=== PATIENT | female | born 1980 | race Caucasian/White ===

== ENCOUNTER 2016-08-24 03:07 | Inpatient (IN) | payer MEDICAID ==
[~2016-08-24] VITALS: Ht 167.6 cm; Wt 99.5 kg
[~2016-08-24 03:07] MED LIST: VICOT PO
[2016-08-24] MEDS ORDERED: IRON18TA PO (03:21)
[2016-08-24] MEDS ORDERED: PNV11TAB PO (03:21)
[2016-08-24 03:48] LABS: BASOPHILS % (AUTO) 0.2 % (0.0-2.0); EOSINOPHILS % (AUTO) 0.2 % (1.0-6.0); HEMATOCRIT 31.3 % (36-46); HEMOGLOBIN 10.4 g/dL (12.0-16.0); LYMPHOCYTES # (AUTO) 1.6 K/uL (1.0-4.8); LYMPHOCYTES % (AUTO) 15.1 % (22.0-44.0); MEAN CORPUSCULAR HEMOGLOBIN 26.4 pg (26.0-34.0); MEAN CORPUSCULAR HGB CONC 33.1 G/dL (31.0-37.0); MEAN CORPUSCULAR VOLUME 80 fL (80-100); MONOCYTES # (AUTO) 0.6 K/uL (0.1-1.0); MONOCYTES % (AUTO) 5.9 % (2.0-9.0); NEUTROPHILS # (AUTO) 8.1 K/uL (1.8-7.7); NEUTROPHILS % (AUTO) 78.6 % (40.0-70.0); PLATELET COUNT (AUTO) 283 K/uL (150-450); RED BLOOD CELL COUNT(AUTO) 3.92 MIL/uL (4.00-5.20); WHITE BLOOD COUNT (AUTO) 10.3 K/uL (4.5-11.0)
[2016-08-24 03:59] LABS: ANION GAP 11 mmol/L (8-16); CALCIUM, TOTAL 8.3 mg/dL (8.8-10.5); CARBON DIOXIDE 23 mmol/L (22-29); CHLORIDE 104 mmol/L (98-107); CREATININE 0.47 mg/dL (0.60-1.30); GLOMERULAR FILTR. RATE CALC > 60 mL/min (>60); POTASSIUM 3.5 mmol/L (3.5-5.1); SODIUM SERUM 138 mmol/L (136-145); UREA NITROGEN, BLOOD 10 mg/dL (7-18)
[2016-08-24] MEDS ORDERED: SODIUM CHLORIDE 0.9% 1,000 ML IV ONE (04:00)
[2016-08-24] MEDS ORDERED: ACTIVATED CHARCOAL 50 GM/240 ML SUSPENSION PO ONE (04:00)
[2016-08-24 04:09] LABS: SALICYLATE < 2.8 mg/dL (2.8-20.0)
[2016-08-24 04:23] LABS: ALANINE AMINOTRANSFERASE 15 U/L (12-78); ALBUMIN 2.9 g/dL (3.4-5.0); ASPARTATE AMINOTRANSFERASE 15 U/L (15-37); BILIRUBIN,TOTAL 0.3 mg/dL (0.1-1.0); TOTAL PROTEIN, SERUM 6.5 g/dL (6.4-8.2)
[2016-08-24 04:27] LABS: ACETAMINOPHEN < 2 mcg/mL (10-30)
[2016-08-24] MEDS ORDERED: 0.9% SODIUM CHLORIDE 10 ML SYRINGE IVP PRN ×2 (05:00→10:00)
[2016-08-24] MEDS ORDERED: ACETAMINOPHEN 325 MG TABLET PO PRN ×2 (05:00→10:00)
[2016-08-24] MEDS ORDERED: ONDANSETRON HCL 4 MG/2 ML VIAL IVP PRN ×2 (05:00→10:00)
[2016-08-24] MEDS ORDERED: PANTOPRAZOLE SODIUM 40 MG/VIAL IVP SCH (10:00)
[2016-08-24] MEDS ORDERED: DOCUSATE SODIUM 100 MG CAPSULE PO SCH (10:00)
[2016-08-24] MEDS ORDERED: MAGNESIUM HYDROXIDE SUSPENSION 30 ML UDCUP PO PRN (10:00)
[2016-08-24] MEDS ORDERED: OxyCODONE HCL/ACETAMINOPHEN 5-325 MG TABLET PO PRN ×2 (10:00)
[2016-08-24] MEDS ORDERED: FERS325 PO (11:13)
[2016-08-24] MEDS: SODIUM CHLORIDE 0.9% 1,000 ML IV SCH ×2 (11:52→20:00)
[2016-08-24 17:03] VITALS: BP 112/67
[2016-08-24 19:24] VITALS: BP 116/61
[2016-08-24 23:29] VITALS: BP 107/59
[2016-08-25 04:19] VITALS: BP 115/67
[2016-08-25] MEDS: SODIUM CHLORIDE 0.9% 1,000 ML IV SCH ×3 (06:00→17:03)
[2016-08-25 07:19] VITALS: BP 116/70
[2016-08-25] MEDS: PRENATAL VIT#96/FERROUS FUM/FA TABLET PO SCH (08:08)
[2016-08-25 11:00] VITALS: BP 117/68
[2016-08-25] MEDS: DOCUSATE SODIUM 100 MG CAPSULE PO SCH ×2 (12:45→19:50)
[2016-08-25 13:36] LABS: APPEARANCE,URINE CLEAR (CLEAR); GLUCOSE, URINE (UA) NEGATIVE (NEGATIVE); KETONES,URINE 15 mg/dL (NEGATIVE); LEUKOCYTE ESTERASE ,URINE SMALL (NEGATIVE); OCCULT BLOOD,URINE MODERATE (NEGATIVE); PROTEIN,URINE NEGATIVE (NEGATIVE)
[2016-08-25 13:46] LABS: SQUAMOUS EPITHELIAL CELL,UR Few /LPF (None Seen)
[2016-08-25 16:00] VITALS: BP 112/60
[2016-08-25] MEDS: FERROUS SULFATE 325 MG EC TABLET PO SCH (18:25)
[2016-08-25 20:23] VITALS: BP 116/62
[2016-08-26 00:26] VITALS: BP 118/69
[2016-08-26] MEDS: SODIUM CHLORIDE 0.9% 1,000 ML IV SCH ×2 (03:05→12:49)
[2016-08-26 04:39] VITALS: BP 103/68
[2016-08-26 08:01] VITALS: BP 108/57
[2016-08-26] MEDS: DOCUSATE SODIUM 100 MG CAPSULE PO SCH (08:14)
[2016-08-26] MEDS: FERROUS SULFATE 325 MG EC TABLET PO SCH ×3 (08:14→17:27)
[2016-08-26] MEDS: PRENATAL VIT#96/FERROUS FUM/FA TABLET PO SCH (08:14)
[2016-08-26 12:02] VITALS: BP 102/60
[2016-08-26 15:11] LABS: HEPATITIS C AB SCREEN <0.1 s/co ratio (0.0-0.9)
[2016-08-26 16:00] VITALS: BP 108/50
[2016-08-26] MEDS ORDERED: ACETAMINOPHEN 325 MG TABLET PO ONE (17:00)
[2016-08-26 22:19] LABS: GC DNA N.A. AMPLIFY Negative (Negative)
[2016-08-27] MEDS ORDERED: CITA20TA9 PO (17:49)
== END 2016-08-26 18:40 | DRG 566 ==
LOC: EMS 03:08 → 5S 13:12 → EMS 16:12
PROVIDERS: ADMIT Internal Medicine; ATTEND Internal Medicine
DX: O9A.211 Injury, poisoning and certain other consequences of external causes complicating pregnancy, first trimester (principal); G92 Toxic encephalopathy; E66.9 Obesity, unspecified; R45.851 Suicidal ideations; Z68.35 Body mass index [BMI] 35.0-35.9, adult; F32.9 Major depressive disorder, single episode, unspecified; T50.901A Poisoning by unspecified drugs, medicaments and biological substances, accidental (unintentional), initial encounter; F22 Delusional disorders; O99.341 Other mental disorders complicating pregnancy, first trimester; Z3A.13 13 weeks gestation of pregnancy; D64.9 Anemia, unspecified; O99.011 Anemia complicating pregnancy, first trimester; O99.211 Obesity complicating pregnancy, first trimester; T42.4X2A Poisoning by benzodiazepines, intentional self-harm, initial encounter; Y92.89 Other specified places as the place of occurrence of the external cause; Z90.49 Acquired absence of other specified parts of digestive tract; Z98.890 Other specified postprocedural states
CPT/HCPCS: 51702; 76801; 76817; 86592; 86762; 86787; 86803; 86850; 86900; 86901; 87086; 87340; 87389; 87491; 87591; 93005; 96361; 96374; 99285; C9113; G0480; G0481; J7030

== ENCOUNTER 2016-08-26 18:45 | Inpatient (IN) | payer MEDICAID ==
[~2016-08-26] VITALS: Ht 167.6 cm; Wt 97.8 kg
[2016-08-26 18:45] VITALS: BP 106/58
[~2016-08-26 18:45] MED LIST changes: +FERR-89 PO; +PNV11TAB PO; -VICOT PO
[2016-08-26] MEDS ORDERED: ZOLPIDEM TARTRATE 10 MG TABLET PO PRN (19:45)
[2016-08-26] MEDS ORDERED: HALOPERIDOL 5 MG TABLET PO PRN (19:45)
[2016-08-26] MEDS ORDERED: LORazepam 2 MG TABLET PO PRN (19:45)
[2016-08-27 08:55] VITALS: BP 131/65
[2016-08-27] MEDS ORDERED: CITALOPRAM HYDROBROMIDE 20 MG TABLET PO SCH (09:00)
[2016-08-27] MEDS ORDERED: CITA20TA9 PO (17:49)
== END 2016-08-27 19:00 | disposition home or self-care (01) | DRG 754 ==
LOC: 3EI 18:45
PROVIDERS: ADMIT Psychiatry & Neurology Psychiatry; ATTEND Psychiatry & Neurology Psychiatry
DX: F32.9 Major depressive disorder, single episode, unspecified (principal); R45.851 Suicidal ideations
CPT/HCPCS: 87081